=== PATIENT | female | born 1950 | race Two or more races ===

== ENCOUNTER 2019-06-04 08:11 | Emergency (ER) | payer SELFPAY ==
[~2019-06-04] VITALS: Ht 162.6 cm; Wt 68.0 kg
[2019-06-04 08:27] VITALS: BP 135/62
== END 2019-06-04 08:50 | disposition left against medical advice (07) ==
LOC: ER 08:11
DX: Z53.21 Procedure and treatment not carried out due to patient leaving prior to being seen by health care provider (principal)